=== PATIENT | male | born 1955 | race Caucasian/White ===

== ENCOUNTER 2017-02-15 14:47 | Emergency (ER) | payer OTHER ==
[~2017-02-15] VITALS: Ht 180.3 cm; Wt 109.1 kg
[2017-02-15 14:49] VITALS: BP 172/109; TEMP 97.9
[2017-02-15] MEDS ORDERED: ULTRAM 50MG TAB50 MG PO (16:29)
[2017-02-15 16:48] VITALS: PULSE 91
== END 2017-02-15 16:48 | disposition home or self-care (01) ==
LOC: COL.ER 14:47
DX: S83.92XA Sprain of unspecified site of left knee, initial encounter (principal); X50.1XXA Overexertion from prolonged static or awkward postures, initial encounter
CPT/HCPCS: L1830

== ENCOUNTER 2017-08-22 11:29 | Inpatient (IN) | payer OTHER ==
[~2017-08-22] VITALS: Ht 180.3 cm; Wt 112.1 kg
[~2017-08-22 11:29] MED LIST: ULTRAM 50MG TAB50 MG PO
[2017-08-22 11:59] LABS: HEMATOCRIT 38.9 % (42.0-52.0); HEMOGLOBIN 13.6 g/dl (13.5-18.0); MEAN CELL VOLUME 73 fl (80.0-100.0); MEAN CORPUSCULAR HEMOGLOBIN 26 pg (27.0-31.0); MEAN CORPUSCULAR HGB CONC 35 g/dl (33.0-37.0); MEAN PLATELET VOLUME 10.5 fl (7.4-10.4); PLATELET COUNT 183 K/mm3 (130-400); RED BLOOD COUNT 5.32 M/mm3 (4.20-5.60); REDCELL DISTRIBUTION WIDTH-CV 15.5 % (11.5-14.5)
[2017-08-22] MEDS ORDERED: FLEXERIL5 MG PO (12:09)
[2017-08-22] MEDS ORDERED: GLUCOPHAGE1000 MG PO (12:10)
[2017-08-22] MEDS ORDERED: TOPROL XL 50MG50 MG PO (12:10)
[2017-08-22] MEDS ORDERED: PRIL40 PO (12:11)
[2017-08-22] MEDS ORDERED: ADVIL200 MG PO (12:15)
[2017-08-22] MEDS ORDERED: NORVASC 5MG5 MG/TAB PO (12:15)
[2017-08-22] MEDS ORDERED: NORCO 325 MG-7.1 TAB PO (12:15)
[2017-08-22] MEDS ORDERED: PRINIVIL40 MG PO (12:15)
[2017-08-22] MEDS ORDERED: GLYXAMBI1 TA1 PO (12:16)
[2017-08-22 12:17] LABS: ALBUMIN 2.8 gm/dL (3.5-5.0); BILIRUBIN,TOTAL 8.2 mg/dL (0.0-1.0); CALCIUM 8.5 mg/dL (8.4-10.2); CREATININE, serum 1.65 mg/dL (0.66-1.25); POTASSIUM 3.4 mmol/L (3.4-5.0)
[2017-08-22 12:29] LABS: C-REACTIVE PROTEIN 20.7 mg/dL (0.0-0.9)
[2017-08-22 12:39] LABS: BAND 15 % (0-10); LYMPHOCYTE 4 % (20.0-51.0); NEUTROPHILS 77 % (42.0-75.2)
[2017-08-22 12:44] LABS: PLATELET ESTIMATE NORMAL (NORMAL)
[2017-08-22 12:45] LABS: MICROCYTOSIS 1+
[2017-08-22 13:21] LABS: TROPONIN-I < 0.012 ng/mL (0.000-0.034)
[2017-08-22 17:08] VITALS: BP 125/69; PULSE 129; TEMP 98.9
[2017-08-22 19:34] VITALS: BP 153/79; PULSE 135; TEMP 97.9
[2017-08-22 21:19] LABS: INR 1.3 (0.8-3.0); PROTHROMBIN TIME 15.1 SECONDS (9.7-12.8)
[2017-08-22 21:21] LABS: PARTIAL THROMBOPLASTIN TIME 34.1 SECONDS (26.0-37.0)
[2017-08-22 23:12] VITALS: BP 147/82; PULSE 125; TEMP 100.3
[2017-08-23] VITALS (13 sets, daily range): BP systolic 123–158; BP diastolic 74–96; PULSE 100–125; TEMP 96.6–99.4
[2017-08-23 07:25] LABS: HEMATOCRIT 37.4 % (42.0-52.0); HEMOGLOBIN 12.8 g/dl (13.5-18.0); MEAN CELL VOLUME 74 fl (80.0-100.0); MEAN CORPUSCULAR HEMOGLOBIN 25 pg (27.0-31.0); MEAN CORPUSCULAR HGB CONC 34 g/dl (33.0-37.0); MEAN PLATELET VOLUME 10.9 fl (7.4-10.4); PLATELET COUNT 185 K/mm3 (130-400); RED BLOOD COUNT 5.09 M/mm3 (4.20-5.60); REDCELL DISTRIBUTION WIDTH-CV 15.4 % (11.5-14.5)
[2017-08-23 07:28] LABS: INR 1.3 (0.8-3.0); PROTHROMBIN TIME 15.1 SECONDS (9.7-12.8)
[2017-08-23 07:31] LABS: PARTIAL THROMBOPLASTIN TIME 32.9 SECONDS (26.0-37.0)
[2017-08-23 07:47] LABS: ALBUMIN 2.6 gm/dL (3.5-5.0); CALCIUM 8.5 mg/dL (8.4-10.2); CREATININE, serum 1.22 mg/dL (0.66-1.25); TOTAL PROTEIN 7.8 gm/dL (6.4-8.2)
[2017-08-23 07:52] LABS: BAND 12 % (0-10); LYMPHOCYTE 6 % (20.0-51.0); METAMYELOCYTE 1 % (0-0); NEUTROPHILS 80 % (42.0-75.2)
[2017-08-23 07:53] LABS: MICROCYTOSIS 1+; PLATELET ESTIMATE NORMAL (NORMAL)
[2017-08-23 08:17] LABS: BILIRUBIN UNCONJUGATED 0.8 mg/dL (0.0-1.1); BILIRUBIN,DIRECT 8.6 mg/dL (0.0-0.4); BILIRUBIN,TOTAL 9.4 mg/dL (0.0-1.0)
[2017-08-23 09:16] LABS: SYNOVIAL FL. MONONUCLEAR 22.2 % (0-75); SYNOVIAL FLUID RBC 567000 /mm3 (0-0); SYNOVIAL FLUID WBC 306897 /mm3 (200-600)
[2017-08-23 09:20] LABS: SYNOVIAL FLUID APPEARANCE TURBID; SYNOVIAL FLUID COLOR BROWN
[2017-08-23 10:06] LABS: ARTERIAL BLD GAS TCO2 CT 12.7; ARTERIAL BLOOD GAS BASE EXCESS -10.6 (-2-2); ARTERIAL BLOOD GAS HCO3 12.1 meq/L (22-26); ARTERIAL BLOOD GAS PO2 88.4 mmHg (80-100); ARTERIAL BLOOD GAS pH 7.39 (7.35-7.45)
[2017-08-23 10:07] LABS: ARTERIAL BLOOD GAS PCO2 20.5 mmHg (35-45)
[2017-08-23] MEDS ORDERED: DEPO-TESTOS100 MG/ML IM (12:09)
[2017-08-24 04:01] VITALS: BP 139/81; PULSE 110; TEMP 98.7
[2017-08-24 06:57] LABS: HEMOGLOBIN 12.1 g/dl (13.5-18.0); MEAN CELL VOLUME 75 fl (80.0-100.0); MEAN CORPUSCULAR HEMOGLOBIN 25 pg (27.0-31.0); MEAN CORPUSCULAR HGB CONC 33 g/dl (33.0-37.0); MEAN PLATELET VOLUME 10.1 fl (7.4-10.4); PLATELET COUNT 192 K/mm3 (130-400); RED BLOOD COUNT 4.82 M/mm3 (4.20-5.60); REDCELL DISTRIBUTION WIDTH-CV 15.7 % (11.5-14.5)
[2017-08-24 06:59] LABS: HEMATOCRIT 36.3 % (42.0-52.0)
[2017-08-24 07:25] LABS: BAND 16 % (0-10); LYMPHOCYTE 2 % (20.0-51.0); NEUTROPHILS 79 % (42.0-75.2); PLATELET ESTIMATE NORMAL (NORMAL)
[2017-08-24 07:26] LABS: MICROCYTOSIS 1+
[2017-08-24 07:27] LABS: ERYTHROCYTE SEDIMENTATION RATE 120 mm/hr (0-30)
[2017-08-24 07:37] VITALS: BP 151/91; PULSE 112; TEMP 98.3
[2017-08-24 11:03] LABS: ALBUMIN 2.4 gm/dL (3.5-5.0); BILIRUBIN UNCONJUGATED 0.9 mg/dL (0.0-1.1); BILIRUBIN,DIRECT 6.8 mg/dL (0.0-0.4); BILIRUBIN,TOTAL 7.6 mg/dL (0.0-1.0); CREATININE, serum 1.08 mg/dL (0.66-1.25); POTASSIUM 3.5 mmol/L (3.4-5.0); TOTAL PROTEIN 7.8 gm/dL (6.4-8.2)
[2017-08-24 11:58] VITALS: BP 148/56; PULSE 112; TEMP 98.4
[2017-08-24 13:35] LABS: COLLECTION METHOD RANDOM VOIDED
[2017-08-24 13:59] LABS: MUCOUS Present /lpf; PH 6 (5-8); SQUAMOUS EPITHELIAL None Seen /hpf; URINE APPEARANCE Clear; URINE BACTERIA None Seen /hpf; URINE BILIRUBIN Negative (NEGATIVE); URINE BLOOD 1+ (NEGATIVE); URINE COLOR Amber; URINE GLUCOSE 3+ (NEGATIVE); URINE KETONE Trace (NEGATIVE); URINE LEUKOCYTE ESTERASE Negative (NEGATIVE); URINE NITRATE Negative (NEGATIVE); URINE PROTEIN(semi-quant) Negative (NEGATIVE); URINE UROBILINOGEN >=4.0 mg/dL (NEGATIVE)
[2017-08-24 16:11] VITALS: BP 168/97; PULSE 123; TEMP 98
[2017-08-24 21:06] VITALS: BP 149/85; PULSE 112; TEMP 98.4
[2017-08-25] VITALS (7 sets, daily range): BP systolic 156–165; BP diastolic 88–97; PULSE 113–125; TEMP 98–99.3
[2017-08-25 07:30] LABS: HEMOGLOBIN 11.8 g/dl (13.5-18.0); MEAN CELL VOLUME 75 fl (80.0-100.0); MEAN CORPUSCULAR HEMOGLOBIN 25 pg (27.0-31.0); MEAN CORPUSCULAR HGB CONC 34 g/dl (33.0-37.0); MEAN PLATELET VOLUME 10.6 fl (7.4-10.4); PLATELET COUNT 222 K/mm3 (130-400); RED BLOOD COUNT 4.69 M/mm3 (4.20-5.60); REDCELL DISTRIBUTION WIDTH-CV 15.8 % (11.5-14.5)
[2017-08-25 07:57] LABS: ALBUMIN 2.4 gm/dL (3.5-5.0); BILIRUBIN,TOTAL 3.6 mg/dL (0.0-1.0); CALCIUM 7.8 mg/dL (8.4-10.2); CREATININE, serum 0.95 mg/dL (0.66-1.25); TOTAL PROTEIN 7.9 gm/dL (6.4-8.2)
[2017-08-25 08:04] LABS: POTASSIUM 2.9 mmol/L (3.4-5.0)
[2017-08-25 08:06] LABS: ERYTHROCYTE SEDIMENTATION RATE 58 mm/hr (0-30)
[2017-08-25 08:11] LABS: BILIRUBIN UNCONJUGATED 0.8 mg/dL (0.0-1.1); BILIRUBIN,DIRECT 2.7 mg/dL (0.0-0.4)
[2017-08-25 09:10] LABS: ANISOCYTOSIS 1+; BAND 4 % (0-10); LYMPHOCYTE 4 % (20.0-51.0); MICROCYTOSIS 1+; NEUTROPHILS 89 % (42.0-75.2); PLATELET ESTIMATE NORMAL (NORMAL)
[2017-08-25 21:15] LABS: HEPATITIS B SURFACE ANTIGEN Negative (()); HEPATITIS C VIRUS ANTIBODY Negative (())
[2017-08-25 23:04] LABS: CARCINOEMBRYONIC ANTIGEN 3.6 ng/mL (0.0-5.0)
[2017-08-26 04:07] VITALS: BP 164/91; PULSE 119; TEMP 98.5
[2017-08-26 06:28] LABS: MEAN CELL VOLUME 74 fl (80.0-100.0); MEAN CORPUSCULAR HEMOGLOBIN 25 pg (27.0-31.0); MEAN CORPUSCULAR HGB CONC 34 g/dl (33.0-37.0); MEAN PLATELET VOLUME 10.6 fl (7.4-10.4); PLATELET COUNT 235 K/mm3 (130-400); REDCELL DISTRIBUTION WIDTH-CV 15.5 % (11.5-14.5)
[2017-08-26 06:33] LABS: HEMATOCRIT 32.4 % (42.0-52.0)
[2017-08-26 06:43] LABS: ALBUMIN 2.4 gm/dL (3.5-5.0); BILIRUBIN UNCONJUGATED 0.8 mg/dL (0.0-1.1); BILIRUBIN,TOTAL 2.8 mg/dL (0.0-1.0); CALCIUM 7.3 mg/dL (8.4-10.2); CREATININE, serum 0.78 mg/dL (0.66-1.25); POTASSIUM 3.1 mmol/L (3.4-5.0); TOTAL PROTEIN 7.6 gm/dL (6.4-8.2)
[2017-08-26 06:50] LABS: C-REACTIVE PROTEIN 4.9 mg/dL (0.0-0.9)
[2017-08-26 07:15] LABS: BAND 3 % (0-10); LYMPHOCYTE 5 % (20.0-51.0); NEUTROPHILS 89 % (42.0-75.2); PLATELET ESTIMATE NORMAL (NORMAL); TARGET CELLS 2+
[2017-08-26 07:16] LABS: ANISOCYTOSIS 1+; MICROCYTOSIS 1+
[2017-08-26 07:17] LABS: ERYTHROCYTE SEDIMENTATION RATE 100 mm/hr (0-30)
[2017-08-26 07:50] VITALS: BP 158/93; PULSE 116; TEMP 98.1
[2017-08-26 11:52] VITALS: BP 153/87; PULSE 115; TEMP 98.7
[2017-08-26 15:46] VITALS: BP 149/96; PULSE 110; TEMP 98.4
[2017-08-26 18:40] VITALS: BP 157/96; PULSE 123; TEMP 98.3
[2017-08-26 23:32] VITALS: BP 138/83; PULSE 104; TEMP 97.8
[2017-08-27 03:14] VITALS: BP 159/89; PULSE 109; TEMP 97.7
[2017-08-27 07:07] LABS: BASO % 0.2 % (0.0-2.0); EOS # 0.1 (0.0-0.7); EOS % 0.3 % (0-4.0); GRAN # 14.9 (1.4-6.5); GRAN % 85.9 % (42.2-75.2); HEMOGLOBIN 10.8 g/dl (13.5-18.0); LYMPH # 1.1 (1.2-3.4); MEAN CELL VOLUME 75 fl (80.0-100.0); MEAN CORPUSCULAR HEMOGLOBIN 25 pg (27.0-31.0); MEAN CORPUSCULAR HGB CONC 33 g/dl (33.0-37.0); MEAN PLATELET VOLUME 10.7 fl (7.4-10.4); MONO # 1.1 (0.1-0.6); MONO % 6.4 % (1.7-9.3); PLATELET COUNT 254 K/mm3 (130-400); RED BLOOD COUNT 4.37 M/mm3 (4.20-5.60); REDCELL DISTRIBUTION WIDTH-CV 15.9 % (11.5-14.5)
[2017-08-27 07:09] LABS: HEMATOCRIT 32.9 % (42.0-52.0)
[2017-08-27 07:23] LABS: ALBUMIN 2.4 gm/dL (3.5-5.0); BILIRUBIN,TOTAL 2.1 mg/dL (0.0-1.0); CALCIUM 7.3 mg/dL (8.4-10.2); CREATININE, serum 0.7 mg/dL (0.66-1.25); POTASSIUM 3.3 mmol/L (3.4-5.0); TOTAL PROTEIN 7.4 gm/dL (6.4-8.2)
[2017-08-27 07:30] LABS: ERYTHROCYTE SEDIMENTATION RATE 95 mm/hr (0-30)
[2017-08-27 07:31] LABS: ALBUMIN 2.4 gm/dL (3.5-5.0); BILIRUBIN UNCONJUGATED 0.6 mg/dL (0.0-1.1); BILIRUBIN,DIRECT 1.4 mg/dL (0.0-0.4); C-REACTIVE PROTEIN 6.3 mg/dL (0.0-0.9); CALCIUM 7.3 mg/dL (8.4-10.2); CREATININE, serum 0.74 mg/dL (0.66-1.25); POTASSIUM 3.3 mmol/L (3.4-5.0); TOTAL PROTEIN 7.5 gm/dL (6.4-8.2)
[2017-08-27 07:33] VITALS: BP 161/92; PULSE 114; TEMP 98.5
[2017-08-27 12:09] VITALS: BP 151/91; PULSE 114; TEMP 98.5
[2017-08-27 15:41] VITALS: BP 157/80; PULSE 125; TEMP 98.8
[2017-08-27 19:11] VITALS: BP 149/82; PULSE 118; TEMP 98.3
[2017-08-27 23:54] VITALS: BP 137/80; PULSE 100; TEMP 97.7
[2017-08-28] VITALS (7 sets, daily range): BP systolic 139–175; BP diastolic 78–95; PULSE 99–115; TEMP 97.9–98.4
[2017-08-28 07:38] LABS: BASO % 0.3 % (0.0-2.0); EOS # 0.2 (0.0-0.7); EOS % 1.1 % (0-4.0); GRAN # 11.8 (1.4-6.5); GRAN % 83.6 % (42.2-75.2); HEMOGLOBIN 10.4 g/dl (13.5-18.0); LYMPH # 0.8 (1.2-3.4); MEAN CELL VOLUME 76 fl (80.0-100.0); MEAN CORPUSCULAR HEMOGLOBIN 25 pg (27.0-31.0); MEAN CORPUSCULAR HGB CONC 33 g/dl (33.0-37.0); MEAN PLATELET VOLUME 10.9 fl (7.4-10.4); MONO # 1.2 (0.1-0.6); MONO % 8.3 % (1.7-9.3); PLATELET COUNT 275 K/mm3 (130-400); REDCELL DISTRIBUTION WIDTH-CV 16.3 % (11.5-14.5)
[2017-08-28 07:46] LABS: HEMATOCRIT 31.3 % (42.0-52.0)
[2017-08-28 07:57] LABS: CALCIUM 7.4 mg/dL (8.4-10.2); CREATININE, serum 0.7 mg/dL (0.66-1.25); POTASSIUM 3.4 mmol/L (3.4-5.0)
[2017-08-28 07:59] LABS: C-REACTIVE PROTEIN 7.3 mg/dL (0.0-0.9)
[2017-08-28 08:08] LABS: ERYTHROCYTE SEDIMENTATION RATE 72 mm/hr (0-30)
[2017-08-28] MEDS ORDERED: ROCEPHIN 2GM VIAL21 IV (08:30)
[2017-08-28] MEDS ORDERED: ZESTRIL 20MG TA20 MG PO (09:38)
[2017-08-28] MEDS ORDERED: LOPRESSOR 550 MG/TAB PO (09:38)
[2017-08-28] MEDS ORDERED: SENOKOT S 50 MG1 TAB PO (09:39)
[2017-08-28] MEDS ORDERED: DULCOLAX S10 MG/SUPP RC (09:39)
[2017-08-28] MEDS ORDERED: MAG-OX 400400 MG/TAB PO (09:39)
[2017-08-28] MEDS ORDERED: TYLENOL 8 HR PO (09:39)
[2017-08-28] MEDS ORDERED: ROXICODONE 55 MG/TAB PO ×2 (09:41→10:35)
[2017-08-28 19:04] LABS: HEMATOCRIT 28.9 % (42.0-52.0); HEMOGLOBIN 9.4 g/dl (13.5-18.0)
[2017-08-29 00:41] LABS: HEMATOCRIT 27.7 % (42.0-52.0); HEMOGLOBIN 9.1 g/dl (13.5-18.0)
[2017-08-29 03:40] VITALS: BP 152/84; PULSE 109; TEMP 98.6
[2017-08-29 06:56] LABS: BASO % 0.3 % (0.0-2.0); EOS # 0.1 (0.0-0.7); EOS % 0.6 % (0-4.0); GRAN # 12.1 (1.4-6.5); GRAN % 85.1 % (42.2-75.2); LYMPH # 0.8 (1.2-3.4); LYMPH % 5.3 % (20.0-51.0); MEAN CELL VOLUME 78 fl (80.0-100.0); MEAN CORPUSCULAR HGB CONC 32 g/dl (33.0-37.0); MEAN PLATELET VOLUME 10.9 fl (7.4-10.4); MONO # 1.1 (0.1-0.6); MONO % 7.9 % (1.7-9.3); PLATELET COUNT 348 K/mm3 (130-400); RED BLOOD COUNT 3.64 M/mm3 (4.20-5.60); REDCELL DISTRIBUTION WIDTH-CV 16.6 % (11.5-14.5)
[2017-08-29 06:59] LABS: HEMATOCRIT 28.4 % (42.0-52.0); HEMOGLOBIN 9.2 g/dl (13.5-18.0); MEAN CORPUSCULAR HEMOGLOBIN 25 pg (27.0-31.0)
[2017-08-29 07:07] LABS: CALCIUM 7.5 mg/dL (8.4-10.2); CREATININE, serum 0.65 mg/dL (0.66-1.25); POTASSIUM 3.6 mmol/L (3.4-5.0)
[2017-08-29] MEDS ORDERED: PROTONIX 40MG T40 MG PO (08:04)
[2017-08-29] MEDS ORDERED: CARAFATE 1GM1 G PO (08:04)
[2017-08-29] MEDS ORDERED: NOVOLOG FLEX100 U/ML SQ (08:12)
[2017-08-29 08:14] VITALS: BP 125/64; PULSE 119; TEMP 98
[2017-08-29] MEDS ORDERED: FERROUS SU325 MG/TAB PO (08:45)
[2017-08-29 11:54] VITALS: BP 145/92; PULSE 120; TEMP 101.2
[2017-08-29 15:57] VITALS: BP 140/75; PULSE 114; TEMP 98.9
[2017-08-29 19:16] VITALS: BP 135/70; PULSE 132; TEMP 98.7
[2017-08-29 23:34] VITALS: BP 145/80; PULSE 116; TEMP 99.2
[2017-08-30 03:59] VITALS: BP 152/86; PULSE 114; TEMP 97.7
[2017-08-30 05:43] LABS: MEAN CELL VOLUME 77 fl (80.0-100.0); MEAN CORPUSCULAR HGB CONC 33 g/dl (33.0-37.0); MEAN PLATELET VOLUME 10.4 fl (7.4-10.4); PLATELET COUNT 359 K/mm3 (130-400); RED BLOOD COUNT 3.51 M/mm3 (4.20-5.60)
[2017-08-30 05:54] LABS: CALCIUM 7.4 mg/dL (8.4-10.2); CREATININE, serum 0.74 mg/dL (0.66-1.25); HEMOGLOBIN 8.8 g/dl (13.5-18.0); MEAN CORPUSCULAR HEMOGLOBIN 25 pg (27.0-31.0); POTASSIUM 3.7 mmol/L (3.4-5.0)
[2017-08-30 07:50] VITALS: BP 157/90; PULSE 116; TEMP 98.8
[2017-08-30 12:06] VITALS: BP 140/78; PULSE 110; TEMP 98.5
[2017-08-30 12:46] LABS: ANISOCYTOSIS 2+; BAND 5 % (0-10); EOSINOPHIL 1 % (0-4); LYMPHOCYTE 4 % (20.0-51.0); MICROCYTOSIS 1+; NEUTROPHILS 88 % (42.0-75.2); PLATELET ESTIMATE INCREASED (NORMAL)
[2017-08-30 15:44] VITALS: BP 153/79; PULSE 110; TEMP 98.2
[2017-08-30 19:06] VITALS: BP 139/82; PULSE 138; TEMP 99.1
[2017-08-30 23:40] VITALS: BP 135/79; PULSE 112; TEMP 98.7
[2017-08-31 04:12] VITALS: BP 132/80; PULSE 104; TEMP 98.2
[2017-08-31 06:00] LABS: BASO # 0.1 (0.0-0.2); BASO % 0.5 % (0.0-2.0); EOS # 0.2 (0.0-0.7); EOS % 1.6 % (0-4.0); GRAN # 11.2 (1.4-6.5); GRAN % 78.4 % (42.2-75.2); LYMPH # 1.2 (1.2-3.4); LYMPH % 8.4 % (20.0-51.0); MEAN CELL VOLUME 79 fl (80.0-100.0); MEAN CORPUSCULAR HGB CONC 32 g/dl (33.0-37.0); MEAN PLATELET VOLUME 10.5 fl (7.4-10.4); MONO # 1.5 (0.1-0.6); MONO % 10.5 % (1.7-9.3); PLATELET COUNT 396 K/mm3 (130-400); RED BLOOD COUNT 3.23 M/mm3 (4.20-5.60); REDCELL DISTRIBUTION WIDTH-CV 17.6 % (11.5-14.5)
[2017-08-31 06:12] LABS: CALCIUM 7.6 mg/dL (8.4-10.2); CREATININE, serum 0.83 mg/dL (0.66-1.25); MAGNESIUM 1.4 mg/dL (1.6-2.3); POTASSIUM 3.8 mmol/L (3.4-5.0)
[2017-08-31 06:14] LABS: HEMATOCRIT 25.5 % (42.0-52.0); HEMOGLOBIN 8.2 g/dl (13.5-18.0); MEAN CORPUSCULAR HEMOGLOBIN 25 pg (27.0-31.0)
[2017-08-31 07:48] VITALS: BP 163/86; PULSE 120; TEMP 98.6
[2017-08-31 11:41] VITALS: BP 129/73; PULSE 105; TEMP 98.5
[2017-08-31 15:57] VITALS: BP 141/91; PULSE 123; TEMP 98.5
[2017-08-31 20:34] VITALS: BP 134/76; PULSE 116; TEMP 98.6
[2017-09-01 04:22] VITALS: BP 137/71; PULSE 100; TEMP 97.6
[2017-09-01 07:05] LABS: BASO # 0.1 (0.0-0.2); BASO % 0.4 % (0.0-2.0); EOS # 0.1 (0.0-0.7); EOS % 0.4 % (0-4.0); GRAN # 11.2 (1.4-6.5); GRAN % 83.1 % (42.2-75.2); LYMPH # 0.9 (1.2-3.4); LYMPH % 6.5 % (20.0-51.0); MEAN CELL VOLUME 80 fl (80.0-100.0); MEAN CORPUSCULAR HGB CONC 32 g/dl (33.0-37.0); MEAN PLATELET VOLUME 11.4 fl (7.4-10.4); MONO # 1.2 (0.1-0.6); MONO % 9.1 % (1.7-9.3); PLATELET COUNT 403 K/mm3 (130-400); RED BLOOD COUNT 3.33 M/mm3 (4.20-5.60); REDCELL DISTRIBUTION WIDTH-CV 17.7 % (11.5-14.5)
[2017-09-01 07:08] LABS: HEMATOCRIT 26.5 % (42.0-52.0); HEMOGLOBIN 8.5 g/dl (13.5-18.0); MEAN CORPUSCULAR HEMOGLOBIN 26 pg (27.0-31.0)
[2017-09-01 07:18] LABS: CALCIUM 7.8 mg/dL (8.4-10.2); CREATININE, serum 0.82 mg/dL (0.66-1.25); POTASSIUM 3.7 mmol/L (3.4-5.0)
[2017-09-01 07:37] VITALS: BP 135/76; PULSE 96; TEMP 97.8
[2017-09-01] MEDS ORDERED: FLEXERIL 1010 MG/TAB PO (08:19)
[2017-09-01] MEDS ORDERED: ROCEPHIN 2GM VIAL21 IV (08:19)
[2017-09-01] MEDS ORDERED: K-TAB20 PO (08:23)
[2017-09-01] MEDS ORDERED: NS INT FLUSH 1010 ML IV (08:25)
[2017-09-01 11:27] VITALS: BP 132/75; PULSE 116; TEMP 97.9
[2017-09-01 13:32] VITALS: BP 132/75; PULSE 116; TEMP 97.9
== END 2017-09-01 14:40 | DRG 485 ==
LOC: COL.ER 11:29 → MEDICAL 14:45
PROVIDERS: Family Medicine; Hospitalist; Internal Medicine; Internal Medicine Infectious Disease; Internal Medicine Nephrology; Nurse Practitioner; Nurse Practitioner Family; Orthopaedic Surgery Sports Medicine; Physician Assistant
PROC: 0S9D00Z Drainage of Left Knee Joint with Drainage Device, Open Approach (ICD-10-PCS; 2017-08-23)
PROC: 0SBD0ZZ Excision of Left Knee Joint, Open Approach (ICD-10-PCS; principal; 2017-08-23 17:00)
PROC: 0DJ08ZZ Inspection of Upper Intestinal Tract, Via Natural or Artificial Opening Endoscopic (ICD-10-PCS; 2017-08-29)
DX: T84.54XA Infection and inflammatory reaction due to internal left knee prosthesis, initial encounter (principal); A41.9 Sepsis, unspecified organism; K25.4 Chronic or unspecified gastric ulcer with hemorrhage; S22.41XA Multiple fractures of ribs, right side, initial encounter for closed fracture; N17.9 Acute kidney failure, unspecified; E87.2 Acidosis; L03.115 Cellulitis of right lower limb; R17 Unspecified jaundice; B95.4 Other streptococcus as the cause of diseases classified elsewhere; I10 Essential (primary) hypertension; E11.9 Type 2 diabetes mellitus without complications; F17.210 Nicotine dependence, cigarettes, uncomplicated; E87.6 Hypokalemia; W18.30XA Fall on same level, unspecified, initial encounter; E83.42 Hypomagnesemia; M25.462 Effusion, left knee
CPT/HCPCS: 99222-AI; 99232-AI; 99233-AI; 99239; A9284; C1751; J0696; J1100; J1170; J1650; J1815; J2250; J2270; J2405; J2543; J2704; J3010; J3370; J3475; J7030; J7040; J7050; L1830; Q9967

== ENCOUNTER 2018-07-24 14:30 | Emergency (ER) | payer OTHER ==
[~2018-07-24] VITALS: Ht 180.3 cm; Wt 118.2 kg
[~2018-07-24 14:30] MED LIST changes: -HYGROTON 2525 MG/TAB PO
[2018-07-24 14:47] VITALS: TEMP 98
[2018-07-24 16:27] LABS: ALBUMIN 4.5 gm/dL (3.5-5.0); BILIRUBIN,TOTAL 0.3 mg/dL (0.0-1.0); CALCIUM 9.3 mg/dL (8.4-10.2); CREATININE, serum 1.1 (0.66-1.25); POTASSIUM 5.4 mmol/L (3.4-5.0); TOTAL PROTEIN 8.4 gm/dL (6.4-8.2)
[2018-07-24] MEDS ORDERED: HYGROTON 2525 MG/TAB PO (17:17)
[2018-07-24 17:41] VITALS: BP 129/80; PULSE 84
== END 2018-07-24 17:40 | disposition home or self-care (01) ==
LOC: COL.ER 14:30
PROVIDERS: Emergency Medicine
DX: E87.5 Hyperkalemia (principal); E11.9 Type 2 diabetes mellitus without complications; I10 Essential (primary) hypertension; Z87.891 Personal history of nicotine dependence; Z79.84 Long term (current) use of oral hypoglycemic drugs
CPT/HCPCS: J0610

== ENCOUNTER → 2018-07-24 | Outpatient (CLI) | payer OTHER ==
[~2018-07-24] MED LIST changes: +ADVIL200 MG PO; +CARAFATE 1GM1 G PO; +DEPO-TESTOS100 MG/ML IM; +DULCOLAX S10 MG/SUPP RC; +FERROUS SU325 MG/TAB PO; +FLEXERIL 1010 MG/TAB PO; +FLEXERIL5 MG PO; +GLUCOPHAGE1000 MG PO; +GLYXAMBI1 TA1 PO; +HYGROTON 2525 MG/TAB PO; +K-TAB20 PO; +LOPRESSOR 550 MG/TAB PO; +MAG-OX 400400 MG/TAB PO; +NORCO 325 MG-7.1 TAB PO; +NORVASC 5MG5 MG/TAB PO; +NOVOLOG FLEX100 U/ML SQ; +NS INT FLUSH 1010 ML IV; +PRIL40 PO; +PRINIVIL40 MG PO; +PROTONIX 40MG T40 MG PO; +ROCEPHIN 2GM VIAL21 IV; +ROXICODONE 55 MG/TAB PO; +SENOKOT S 50 MG1 TAB PO; +TOPROL XL 50MG50 MG PO; +TYLENOL 8 HR PO; +ZESTRIL 20MG TA20 MG PO
[2018-07-24 09:32] LABS: BASO # 0.1 (0.0-0.2); BASO % 0.5 % (0.0-2.0); EOS # 0.2 (0.0-0.7); EOS % 2.2 % (0-4.0); GRAN # 8.4 (1.4-6.5); GRAN % 77.4 % (42.2-75.2); HEMATOCRIT 49.3 % (42.0-52.0); HEMOGLOBIN 15.2 g/dl (13.5-18.0); LYMPH # 1.1 (1.2-3.4); LYMPH % 9.9 % (20.0-51.0); MEAN CELL VOLUME 84 fl (80.0-100.0); MEAN CORPUSCULAR HEMOGLOBIN 26 pg (27.0-31.0); MEAN CORPUSCULAR HGB CONC 31 g/dl (33.0-37.0); MEAN PLATELET VOLUME 9.9 fl (7.4-10.4); MONO # 1.1 (0.1-0.6); MONO % 9.7 % (1.7-9.3); PLATELET COUNT 252 K/mm3 (130-400); REDCELL DISTRIBUTION WIDTH-CV 14.8 % (11.5-14.5)
[2018-07-24 09:46] LABS: ALBUMIN 4.5 gm/dL (3.5-5.0); BILIRUBIN,TOTAL 0.5 mg/dL (0.0-1.0); C-REACTIVE PROTEIN 0.9 mg/dL (0.0-0.9); CALCIUM 9.7 mg/dL (8.4-10.2); CREATININE, serum 1.2 (0.66-1.25); TOTAL PROTEIN 8.6 gm/dL (6.4-8.2)
[2018-07-24 09:53] LABS: ERYTHROCYTE SEDIMENTATION RATE 1 mm/hr (0-30)
[2018-07-24 10:09] LABS: POTASSIUM 6.3 mmol/L (3.4-5.0)
== END ==
LOC: COL.LAB 09:13
PROVIDERS: Nurse Practitioner
DX: A49.1 Streptococcal infection, unspecified site (principal); A49.01 Methicillin susceptible Staphylococcus aureus infection, unspecified site; M00.9 Pyogenic arthritis, unspecified

== ENCOUNTER 2019-05-07 12:29 | Inpatient (IN) | payer MEDICARE ==
[~2019-05-07] VITALS: Ht 177.8 cm; Wt 120.0 kg
[~2019-05-07 12:29] MED LIST changes: +HYGROTON 2525 MG/TAB PO
[2019-05-07 13:20] LABS: BASO # 0.1 (0.0-0.2); BASO % 0.4 % (0.0-2.0); EOS # 0.2 (0.0-0.7); EOS % 1.4 % (0-4.0); GRAN # 9.9 (1.4-6.5); GRAN % 81.2 % (42.2-75.2); HEMATOCRIT 49.9 % (42.0-52.0); LYMPH # 1.2 (1.2-3.4); LYMPH % 9.8 % (20.0-51.0); MEAN CELL VOLUME 85 fl (80.0-100.0); MEAN CORPUSCULAR HEMOGLOBIN 27 pg (27.0-31.0); MEAN CORPUSCULAR HGB CONC 32 g/dl (33.0-37.0); MEAN PLATELET VOLUME 9.7 fl (7.4-10.4); MONO # 0.8 (0.1-0.6); MONO % 6.8 % (1.7-9.3); PLATELET COUNT 227 K/mm3 (130-400); RED BLOOD COUNT 5.89 M/mm3 (4.20-5.60); REDCELL DISTRIBUTION WIDTH-CV 16.2 % (11.5-14.5)
[2019-05-07 13:39] LABS: ALBUMIN 4.2 gm/dL (3.5-5.0); BILIRUBIN,TOTAL 0.7 mg/dL (0.0-1.0); C-REACTIVE PROTEIN 0.6 mg/dL (0.0-0.9); CREATININE, serum 0.96 (0.66-1.25); POTASSIUM 4.7 mmol/L (3.4-5.0); TOTAL PROTEIN 7.9 gm/dL (6.4-8.2)
[2019-05-07] MEDS ORDERED: CEPHALEXIN500 M1 (15:12)
[2019-05-07] MEDS ORDERED: NEURONTIN300 MG/CAP PO (15:13)
[2019-05-07] MEDS ORDERED: NEURONTIN100 MG/CAP PO (15:13)
[2019-05-07] MEDS ORDERED: BUSPAR10 MG PO (15:14)
[2019-05-07] MEDS ORDERED: PRIL40 PO (15:14)
[2019-05-07 17:03] LABS: COLLECTION METHOD CLEAN CATCH
[2019-05-07 17:17] LABS: MUCOUS Present /lpf; PH 5 (5-8); SQUAMOUS EPITHELIAL 0-2 /hpf; URINE APPEARANCE Clear; URINE BACTERIA None Seen /hpf; URINE BILIRUBIN Negative (NEGATIVE); URINE BLOOD Negative (NEGATIVE); URINE COLOR Yellow; URINE GLUCOSE Negative (NEGATIVE); URINE KETONE Negative (NEGATIVE); URINE LEUKOCYTE ESTERASE Negative (NEGATIVE); URINE NITRATE Negative (NEGATIVE); URINE PROTEIN(semi-quant) 1+ (NEGATIVE); URINE UROBILINOGEN Negative (NEGATIVE)
[2019-05-07 17:46] LABS: INR 1.1 (0.8-3.0); PROTHROMBIN TIME 12.5 SECONDS (9.7-12.8)
[2019-05-07 17:50] LABS: SALICYLATE < 1.0 mg/dL
[2019-05-07 17:58] LABS: TROPONIN-I 0.016 ng/mL (0.000-0.035)
[2019-05-07 18:03] VITALS: BP 144/97; PULSE 116; TEMP 98.6
--- NOTE | 2019-05-07 18:52 | NUR ---
Pt up to room 307, A&O, independent in room. Initial completed by NICOLASA Cedeño. Report then given to fast food shift supervisor nurse. Unable to complete admission.
[2019-05-07 19:19] VITALS: BP 148/88; PULSE 123; TEMP 98.4
[2019-05-07] MEDS ORDERED: ROXICODONE 55 MG/TAB PO (19:38)
--- NOTE | 2019-05-07 20:00 | NUR ---
Assessment complete. Lungs clear. Heart sounds normal. Bowels active x4. Pulses strong throughout. No edema noted. Rash present to left hand-patient reports previous treatment received. Reports ABD pain at this time. Request PRN oxycodone to be ordered. Denies other needs. Call light in reach.
--- NOTE | 2019-05-07 20:15 | NUR ---
Patient requested home oxycodone 5mg Q4H. Spoke with Dr. Thomas. Stanford to add oxycodone 5 mg Q8H.
[2019-05-08] VITALS (11 sets, daily range): BP systolic 104–172; BP diastolic 77–116; PULSE 111–130; TEMP 97.6–98.9
--- NOTE | 2019-05-08 00:27 | NUR ---
Telemetry called stating patient pulse 144. Patient BP 170/110. Reports difficulty breathing and has wheezing with auscultation. No edema noted at this time. Spoke with Dr. Thomas. Stop IVF and give metprolol 50mg now and resume home dosing.
--- NOTE | 2019-05-08 02:00 | NUR ---
Resting in bed. Denies needs. Denies concerns at this time. Call light in reach.
--- NOTE | 2019-05-08 04:23 | NUR ---
Reports 7/10 ABD and knee pain. Provided with PRN oxycodone. Denies other needs at this time.
[2019-05-08 06:11] LABS: BASO # 0.1 (0.0-0.2); BASO % 0.6 % (0.0-2.0); EOS # 0.2 (0.0-0.7); EOS % 1.7 % (0-4.0); GRAN # 10.2 (1.4-6.5); GRAN % 84.2 % (42.2-75.2); HEMATOCRIT 47.2 % (42.0-52.0); HEMOGLOBIN 15.3 g/dl (13.5-18.0); LYMPH # 0.7 (1.2-3.4); LYMPH % 5.8 % (20.0-51.0); MEAN CELL VOLUME 85 fl (80.0-100.0); MEAN CORPUSCULAR HEMOGLOBIN 27 pg (27.0-31.0); MEAN CORPUSCULAR HGB CONC 32 g/dl (33.0-37.0); MEAN PLATELET VOLUME 10.2 fl (7.4-10.4); MONO # 0.9 (0.1-0.6); MONO % 7.2 % (1.7-9.3); PLATELET COUNT 222 K/mm3 (130-400); RED BLOOD COUNT 5.58 M/mm3 (4.20-5.60); REDCELL DISTRIBUTION WIDTH-CV 16.1 % (11.5-14.5)
[2019-05-08 06:24] LABS: ALBUMIN 3.9 gm/dL (3.5-5.0); BILIRUBIN,TOTAL 0.9 mg/dL (0.0-1.0); CALCIUM 8.3 mg/dL (8.4-10.2); CREATININE, serum 0.87 (0.66-1.25); TOTAL PROTEIN 7.2 gm/dL (6.4-8.2)
--- NOTE | 2019-05-08 06:30 | NUR ---
Patient fluids discontinued over night due to elevated BP, wheezing, and difficulty breathing. Otherwise uneventful night. Resting in bed this AM. Call light in reach.
--- NOTE | 2019-05-08 07:02 | NUR ---
Report given to LOIS Gonzales
--- NOTE | 2019-05-08 14:29 | NUR ---
Plan: To return home with brother Alfonso [phone] as care support. Patient also listed his brother as his EMR, and he does not currently have a DPOA on file he indicated that contact would be his brother. Patient currently lives in [facility]. Assess: SW met with patient, who showed SW surgery on his knees. Patient noted that he occassionally utilizes a cane to get around. Patient reported that hisPCP is Dr. Lake in [facility], and he has an upcoming appointment June 06. Patient reports that he gets his medications from [facility] with no complications. Patient declined services at time. 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 SW provided SM with contact information for VR, and described services offered. Patient also provided patient with a DPOA, and provided information about how to fill it out. Patient was also educated about community resources, and provided with a community resources packet. MANJIT will continue to follow.
--- NOTE | 2019-05-08 18:52 | NUR ---
Patient complains of SOB and cramps in his belly, Pain of 5/10, Pain was relieved with pain medication. Patient is alert and oriented.
--- NOTE | 2019-05-08 19:24 | NUR ---
Sitting at bedside. Assessment complete. Lungs clear. Reports mild shortness of breath. Heart sounds tachy. Bowels active x4. Pulses strong throughout. No edema noted. INT left AC without complications. BP elevated Provided with schedule metoprolol. Will recheck at 2100 and provide PRN hydralazine if needed. Reports 4/10 ABD pain. Provided with PRN oxycodone at this time. Denies other needs. Call light in reach.
--- NOTE | 2019-05-08 21:00 | NUR ---
Patient requested this nurse to update daughter Joan. Spoke with Joan. Questions answered. No concerns at this time.
--- NOTE | 2019-05-09 00:12 | NUR ---
Reports 5/10 ABD and left leg pain. Provided with PRN flexeril at this time. Call dm bartlett.
[2019-05-09 03:49] VITALS: BP 159/103; PULSE 127; TEMP 97.8
--- NOTE | 2019-05-09 05:49 | NUR ---
Patient tachy throughout night 110-120s and hypertensive. Did not require any PRN hydralazine. Resting in bed this AM. Reports shortness of breath improving. Denies needs this Am. Call light in reach.
[2019-05-09 06:21] LABS: BASO # 0.1 (0.0-0.2); BASO % 0.5 % (0.0-2.0); EOS # 0.2 (0.0-0.7); GRAN # 10.1 (1.4-6.5); GRAN % 82.9 % (42.2-75.2); HEMOGLOBIN 16.4 g/dl (13.5-18.0); LYMPH # 0.8 (1.2-3.4); LYMPH % 6.2 % (20.0-51.0); MEAN CELL VOLUME 83 fl (80.0-100.0); MEAN CORPUSCULAR HEMOGLOBIN 27 pg (27.0-31.0); MEAN CORPUSCULAR HGB CONC 33 g/dl (33.0-37.0); MEAN PLATELET VOLUME 10.1 fl (7.4-10.4); MONO % 8.1 % (1.7-9.3); PLATELET COUNT 240 K/mm3 (130-400); RED BLOOD COUNT 6.05 M/mm3 (4.20-5.60); REDCELL DISTRIBUTION WIDTH-CV 15.9 % (11.5-14.5)
[2019-05-09 06:32] LABS: BILIRUBIN,TOTAL 1.2 mg/dL (0.0-1.0); CALCIUM 8.6 mg/dL (8.4-10.2); CREATININE, serum 0.75 (0.66-1.25); POTASSIUM 3.5 mmol/L (3.4-5.0); TOTAL PROTEIN 7.5 gm/dL (6.4-8.2)
--- NOTE | 2019-05-09 06:51 | NUR ---
Report given to LOIS Gonzales
[2019-05-09 07:52] VITALS: BP 152/100; PULSE 123; TEMP 97.7
--- NOTE | 2019-05-09 08:50 | NUR ---
Pt assessment complete. Pt is sitting up in the recliner upon entry, he is A/O x4. His breathing is even and unlabored on RA. Pt reports pain 4/10 to abdomen. Reports stools have slowed down. Reports intermittent SOB. Denies chest pain or palpitations. POC discussed with patient who verbalizes understanding. No needs at this time. Call light within reach.
[2019-05-09] MEDS ORDERED: FLAGYL500 MG PO (10:04)
[2019-05-09] MEDS ORDERED: LOPRESSOR 550 MG/TAB PO (10:04)
[2019-05-09 11:16] VITALS: BP 131/95; PULSE 106; TEMP 97.7
--- NOTE | 2019-05-09 12:00 | NUR ---
Discharge instructions and paperwork reviewed with patient. All questions answered at this time. IV to LAC dc'd catheter tip intact. Pt walked out of facility at this time.
== END 2019-05-09 12:01 | disposition home or self-care (01) | DRG 872 ==
LOC: COL.ER 12:29 → MEDICAL 15:27 → COL.ER 15:27 → EDBEDREQ 15:43 → MEDICAL 05-09 03:00
PROVIDERS: Family Medicine; Nurse Practitioner Family; ADMIT Student in an Organized Health Care Education/Training Program
DX: A41.9 Sepsis, unspecified organism (principal); E87.2 Acidosis; I50.22 Chronic systolic (congestive) heart failure; K52.9 Noninfective gastroenteritis and colitis, unspecified; R65.20 Severe sepsis without septic shock; E11.9 Type 2 diabetes mellitus without complications; I50.9 Heart failure, unspecified; K57.90 Diverticulosis of intestine, part unspecified, without perforation or abscess without bleeding; I11.0 Hypertensive heart disease with heart failure; R00.0 Tachycardia, unspecified; K21.9 Gastro-esophageal reflux disease without esophagitis; N28.1 Cyst of kidney, acquired; Z79.84 Long term (current) use of oral hypoglycemic drugs; Z79.1 Long term (current) use of non-steroidal anti-inflammatories (NSAID); Z87.891 Personal history of nicotine dependence; Z96.652 Presence of left artificial knee joint; Z88.2 Allergy status to sulfonamides
CPT/HCPCS: 99222-AI; 99231-AI; 99239; J0696; J1650; J1815; J2270; J2405; J2543; J7030; Q9967

== ENCOUNTER 2019-06-28 17:16 | Inpatient (IN) | payer MEDICARE ==
[~2019-06-28] VITALS: Ht 180.3 cm; Wt 119.9 kg
[~2019-06-28 17:16] MED LIST changes: +BUSPAR10 MG PO; +CEPHALEXIN500 M1; +FLAGYL500 MG PO; +NEURONTIN100 MG/CAP PO; +NEURONTIN300 MG/CAP PO
[2019-06-28 17:44] LABS: BASO # 0.1 (0.0-0.2); BASO % 0.6 % (0.0-2.0); EOS # 0.1 (0.0-0.7); EOS % 1.1 % (0-4.0); GRAN # 9.1 (1.4-6.5); GRAN % 77.7 % (42.2-75.2); HEMATOCRIT 49.1 % (42.0-52.0); HEMOGLOBIN 15.2 g/dl (13.5-18.0); LYMPH # 1.4 (1.2-3.4); LYMPH % 12.1 % (20.0-51.0); MEAN CELL VOLUME 81 fl (80.0-100.0); MEAN CORPUSCULAR HEMOGLOBIN 25 pg (27.0-31.0); MEAN CORPUSCULAR HGB CONC 31 g/dl (33.0-37.0); MEAN PLATELET VOLUME 10.4 fl (7.4-10.4); MONO # 0.9 (0.1-0.6); MONO % 8.1 % (1.7-9.3); PLATELET COUNT 203 K/mm3 (130-400); RED BLOOD COUNT 6.03 M/mm3 (4.20-5.60); REDCELL DISTRIBUTION WIDTH-CV 15.3 % (11.5-14.5)
[2019-06-28 17:54] LABS: ALBUMIN 4.5 gm/dL (3.5-5.0); BILIRUBIN,TOTAL 1.1 mg/dL (0.0-1.0); C-REACTIVE PROTEIN 2.6 mg/dL (0.0-0.9); CALCIUM 9.5 mg/dL (8.4-10.2); CREATININE, serum 1.53 (0.66-1.25); POTASSIUM 4.2 mmol/L (3.4-5.0); TOTAL PROTEIN 8.4 gm/dL (6.4-8.2)
[2019-06-28 18:00] LABS: INR 1.4 (0.8-3.0)
[2019-06-28 18:03] LABS: TROPONIN-I 0.019 ng/mL (0.000-0.035)
[2019-06-28] MEDS ORDERED: ASPIRIN 81M81 MG/TA2 PO (18:10)
[2019-06-28] MEDS ORDERED: ATARAX 25MG25 MG/TAB PO (19:03)
[2019-06-28] MEDS ORDERED: CEPHALEXIN500 M1 PO (19:04)
[2019-06-28 20:20] LABS: COLLECTION METHOD CLEAN CATCH
[2019-06-28 20:28] LABS: MUCOUS Present /lpf; PH 6 (5-8); SQUAMOUS EPITHELIAL None Seen /hpf; URINE APPEARANCE Clear; URINE BACTERIA None Seen /hpf; URINE BILIRUBIN Negative (NEGATIVE); URINE BLOOD Negative (NEGATIVE); URINE COLOR Yellow; URINE GLUCOSE Negative (NEGATIVE); URINE KETONE Negative (NEGATIVE); URINE LEUKOCYTE ESTERASE Negative (NEGATIVE); URINE NITRATE Negative (NEGATIVE); URINE PROTEIN(semi-quant) 2+ (NEGATIVE)
[2019-06-28 21:10] LABS: MAGNESIUM 1.1 mg/dL (1.6-2.3); PHOSPHOROUS 4.2 mg/dL (2.5-4.5)
[2019-06-28 21:42] LABS: THYROID STIMULATING HORMONE 1.65 uIU/mL (0.465-4.680)
[2019-06-28] MEDS ORDERED: TOPROL XL100 MG PO (22:01)
[2019-06-28] MEDS ORDERED: HYGROTON 2525 MG/TAB PO (22:05)
[2019-06-28] MEDS ORDERED: PRIL40 PO (22:07)
[2019-06-28] MEDS ORDERED: FLEXERIL 1010 MG/TAB PO (22:09)
[2019-06-28] MEDS ORDERED: ZOFRAN 4MG T4 MG/TAB PO (22:13)
[2019-06-28] MEDS ORDERED: SENOKOT8.6 MG PO (22:16)
[2019-06-29 00:51] VITALS: BP 110/63; PULSE 101; TEMP 97.8
--- NOTE | 2019-06-29 01:47 | NUR ---
PATIENT IS 77% ON 15L HIFLOW NASAL CANNULA.
[2019-06-29 03:35] LABS: BASO # 0.1 (0.0-0.2); BASO % 0.6 % (0.0-2.0); EOS # 0.2 (0.0-0.7); EOS % 1.6 % (0-4.0); GRAN # 7.8 (1.4-6.5); GRAN % 70.6 % (42.2-75.2); HEMATOCRIT 44.6 % (42.0-52.0); LYMPH # 1.8 (1.2-3.4); LYMPH % 16.8 % (20.0-51.0); MEAN CELL VOLUME 81 fl (80.0-100.0); MEAN CORPUSCULAR HEMOGLOBIN 25 pg (27.0-31.0); MEAN CORPUSCULAR HGB CONC 31 g/dl (33.0-37.0); MONO # 1.1 (0.1-0.6); MONO % 9.9 % (1.7-9.3); PLATELET COUNT 179 K/mm3 (130-400); RED BLOOD COUNT 5.51 M/mm3 (4.20-5.60)
[2019-06-29 03:45] LABS: CALCIUM 9.1 mg/dL (8.4-10.2); CHOLESTEROL RISK RATIO 6.5; CREATININE, serum 1.43 (0.66-1.25); POTASSIUM 3.6 mmol/L (3.4-5.0)
[2019-06-29 03:56] LABS: TROPONIN-I 0.021 ng/mL (0.000-0.035)
[2019-06-29 04:41] VITALS: BP 112/67; PULSE 99; TEMP 97.8
--- NOTE | 2019-06-29 04:43 | NUR ---
PATIENT CAME TO THE UNIT FROM THE ED. HE HAS HAD AN UNEVENTFUL NIGHT. AFTER ONE PAIN PILL AND HIS EVENING MEDICATIONS HE HAS BEEN ABLE TO SLEEP THROUGH THE NIGHT NOT REQUIRING ANYTHING FROM STAFF. WILL REPORT OFF TO DAY SHIFT UPON THEIR ARRIVAL
--- NOTE | 2019-06-29 05:33 | NUR ---
PATIENT WAS EDUCATED ON NOT TAKING SUDAFED ANYMORE BECUASE OF HIS CARDIAC HISTORY BECUASE IT CAN CAUSE A HYPERTENSION EMERGENCY PER Leo ALLEN. PATIENT WAS IN UNDERSTANDANCE OF THIS
[2019-06-29 09:03] VITALS: BP 144/97; PULSE 111; TEMP 98.4
--- NOTE | 2019-06-29 11:36 | NUR ---
Patient is alert and oriented. LOIS Albert increased aspirin from 81mg to 325mg because of a cath procedure he is getting. Procedure will be rescheduled because he needd to be screened for COVID 19 before the procedure can be done.
[2019-06-29 13:00] VITALS: BP 143/103; PULSE 110
[2019-06-29 15:33] VITALS: BP 143/103; PULSE 109
--- NOTE | 2019-06-29 15:40 | NUR ---
SW contacted the patient's room phone to discuss discharge plan. The patient lives in [place] with his older brother, Gerald (ph#[phone]). He reports independence with ADLs and has a cane, walker, and wheelchair available, if needed. The patient's primary care provider is Shelley Alaniz APRN in [place] and he receives his medications at [facility]. He reports no difficulties obtaining his meds. The patient was not interested in getting set up with a closer PCP at this time. The patient does not have advanced directives in EMR, but he states that he does have them completed and at home. The patient states that his brother, Gerald, is his DPOA-HC and next of skin. He states that he is not and does not have any children. The patient plans to return back home with his brother upon discharge. No other additional needs at this time, but SW to continue to follow as needed.
--- NOTE | 2019-06-29 20:17 | NUR ---
Patient is alert an oriented. he was prep for heart cath but was later rescheduled because he has not been cleared for covid 19. patient was transferred to ICU.
[2019-06-29 20:31] VITALS: BP 122/93; PULSE 107; TEMP 97.3
--- NOTE | 2019-06-29 20:34 | NUR ---
Sitting at bedside. Assessment complete. Lungs clear. Heart sounds normal. Bowels active x4. Pulses strong throughout. Right lower extremity edema +2, left lower +1. Rating ABD and knee pain 6/10. Given flexeril at this time. INT right AC without complications. Denies other needs. Call light in reach.
--- NOTE | 2019-06-29 22:45 | NUR ---
Resting in bed. Denies needs. Call light in reach.
[2019-06-30] VITALS (8 sets, daily range): BP systolic 100–127; BP diastolic 70–91; PULSE 91–105; TEMP 96.3–97.9
--- NOTE | 2019-06-30 00:51 | NUR ---
Patient 88% on room air while asleep. Placed on 2 liters nasal cannula.
[2019-06-30 05:37] LABS: BASO # 0.1 (0.0-0.2); BASO % 0.6 % (0.0-2.0); EOS # 0.5 (0.0-0.7); EOS % 4.1 % (0-4.0); GRAN % 73.2 % (42.2-75.2); HEMATOCRIT 46.4 % (42.0-52.0); HEMOGLOBIN 14.5 g/dl (13.5-18.0); LYMPH # 1.4 (1.2-3.4); LYMPH % 12.9 % (20.0-51.0); MEAN CELL VOLUME 80 fl (80.0-100.0); MEAN CORPUSCULAR HEMOGLOBIN 25 pg (27.0-31.0); MEAN CORPUSCULAR HGB CONC 31 g/dl (33.0-37.0); MEAN PLATELET VOLUME 10.5 fl (7.4-10.4); MONO % 8.9 % (1.7-9.3); PLATELET COUNT 188 K/mm3 (130-400); RED BLOOD COUNT 5.77 M/mm3 (4.20-5.60); REDCELL DISTRIBUTION WIDTH-CV 14.8 % (11.5-14.5)
[2019-06-30 05:47] LABS: CALCIUM 8.6 mg/dL (8.4-10.2); CREATININE, serum 1.62 (0.66-1.25); POTASSIUM 3.4 mmol/L (3.4-5.0)
--- NOTE | 2019-06-30 07:41 | NUR ---
Patient required x1 dose of oxycodone and x1 dose of flexeril for pain control. Otherwise unevnetful night. Sitting at bedside eating breakfast. Report given to LOIS Gonzales
--- NOTE | 2019-06-30 09:05 | NUR ---
Pt assessment complete. Pt is sleeping in bed upon entry, he arouses to voice. He is oriented x4. His breathing is even and unlabored on 2L O2 via NC. Pt denies SOB at this time, reports worsening with exertion. Pt has intermittent cough. Reports pain to knees at this time and states he is having leg cramps. Also reports his stomach is upset, no vomitting. Pt provided with water and crackers per his request. No needs at this time. Call light within reach.
--- NOTE | 2019-06-30 17:09 | NUR ---
Pt awoken from a nap stating he was feeling SOB, states this is the same thing that brought him into the hospital. O2 sat 93% on 1L O2 via NC. Requesting a "medication for anxiety". Atarax to be given. Will continue to monitor.
--- NOTE | 2019-06-30 19:30 | NUR ---
Pt resting in bed. No distress noted. VSS. Respirations even and unlabored. Lungs clear to auscultation. Spo2 95% on RA. Pt reports chest tightness but no pain or shortness of breath. Pt c/o pain in bilateral lower extremities. RLE has 2+ pitting edema. LLE no edema noted. Abdomen soft, nontender. BS+. Pt voiding clear, bernie urine without difficulty. Pt denies needs at this time.
--- NOTE | 2019-06-30 21:30 | NUR ---
COVID-19 test negative. Laura PACHECO notified by x ray physician. Pt removed from isolation precautions.
--- NOTE | 2019-06-30 22:54 | NUR ---
Pt aware of transfer to medical floor. Report called to Meredith ABREU on medical.
--- NOTE | 2019-06-30 23:15 | NUR ---
Pt transferred to room 314 via wheelchair. No distress noted. Pt on RA. VSS. Meredith RN at bedside. Call light in reach.
--- NOTE | 2019-06-30 23:20 | NUR ---
Received patient via wheelchair from ICU. He is alert, oriented and independent. He has INT on right AC. With pain on his bilateral knees with score of 5/10. Provided him with sandwich box and water. Instructed patient that he is on fluid restriction of 1500ml per day. Provided urinal for accurate intake and output. On room air and tele. Call light within reach.
[2019-07-01] VITALS (472 sets, daily range): BP systolic 96–142; BP diastolic 52–99; PULSE 84–110; TEMP 97.5–98.5; O2SAT 94–100
[2019-07-01 05:50] LABS: BASO # 0.1 (0.0-0.2); BASO % 0.7 % (0.0-2.0); EOS # 0.6 (0.0-0.7); EOS % 6.1 % (0-4.0); GRAN # 6.3 (1.4-6.5); GRAN % 68.5 % (42.2-75.2); HEMATOCRIT 47.7 % (42.0-52.0); LYMPH # 1.4 (1.2-3.4); LYMPH % 14.8 % (20.0-51.0); MEAN CELL VOLUME 82 fl (80.0-100.0); MEAN CORPUSCULAR HEMOGLOBIN 26 pg (27.0-31.0); MEAN CORPUSCULAR HGB CONC 31 g/dl (33.0-37.0); MEAN PLATELET VOLUME 10.5 fl (7.4-10.4); MONO # 0.9 (0.1-0.6); MONO % 9.4 % (1.7-9.3); PLATELET COUNT 226 K/mm3 (130-400); RED BLOOD COUNT 5.85 M/mm3 (4.20-5.60); REDCELL DISTRIBUTION WIDTH-CV 14.9 % (11.5-14.5)
[2019-07-01 06:05] LABS: CALCIUM 8.5 mg/dL (8.4-10.2); CREATININE, serum 1.57 (0.66-1.25); MAGNESIUM 1.9 mg/dL (1.6-2.3); POTASSIUM 3.7 mmol/L (3.4-5.0)
--- NOTE | 2019-07-01 06:15 | NUR ---
Patient had an uneventful night. He states he was able to sleep. No shortness of breath noted. With pain on his bilateral knees, pain score of 5/10. Oxycodone PRN given. Will endorse to day shift nurse.
--- NOTE | 2019-07-01 10:50 | NUR ---
Pt assessment completed and charted. Pt is A&O, independent in room. Pt on room air at this time, breathing is even and unlabored. Pt has RAC INT IV that flushes w/o complications. Pt to have heart cath procedure this afternoon, NPO at this time. Pt denies any pain at this time, requesting to take a nap before procedure. Pt provided w/ gown to change into before procedure. Consent signed and on chart. All questions answered regarding procedure, no further needs.
--- NOTE | 2019-07-01 12:13 | NUR ---
Pt worked with therapy and then after called out requesting pain medication. Pt states he has chronic knee pain and it is now "shooting up there". Administered PRN pain medication per MAR. Pt going down for heart cath at this time.
--- NOTE | 2019-07-01 12:45 | NUR ---
SEE MERGE DOCUMENTATION FOR MEDICATION ADMINISTRATION TIMES AND INTRA/POST PROCEDURE SEDATION ASSESSMENTS. PLAN FOR RIGHT RADIAL APPROACH FOR LHC; BARBEAU TEST POSITIVE. PLAN FOR RIGHT GROIN ACCESS FOR RHC.
--- NOTE | 2019-07-01 14:18 | NUR ---
Latasha Milton from tutorial laboratory supervisor called, pt transferred to [facility]. LATASHA Ortiz receiving pt, received report from LATASHA Milton. Belongings taken to room. RN to call for any further questions.
--- NOTE | 2019-07-01 14:24 | NUR ---
PT TRANSFERRED FROM [employer] VIA BED TO EU 14. PT AWAKE, ALERT, AND ORIENTED.
--- NOTE | 2019-07-01 14:25 | NUR ---
Patient transferred to [facility] at that time. VS monitors attached to pt, all VS's stable. Bedside handoff with Diana CHEF GERMAN. Right radial site with TR Band in place; 10cc air in band. No bleeding noted; pt denies pain or sensation changes to hand. Right groin venous puncture site observed; dressing noted dry and intact. No bleeding or bruising noted. Site soft to palpation. No s/sx of distress noted. Education reinforced with pt regarding wrist and groin precautions. Pt verbalizes understanding of these instructions.
--- NOTE | 2019-07-01 14:29 | NUR ---
PT HAS RIGHT RADIAL TR BAND. PT ALSO HAS RIGHT VENOUS PUNCTURE SITE. SITE HAS GAUZE SITE COVERED WITH TEGADERM.
--- NOTE | 2019-07-01 14:46 | NUR ---
RIGHT GROIN SITE DRESSING CLEAN, DRY, AND INTACT.
--- NOTE | 2019-07-01 14:56 | NUR ---
RIGHT GROIN SITE CLEAN, DRY, AND INTACT.
--- NOTE | 2019-07-01 15:48 | NUR ---
RIGHT GROIN SITE CLEAN, DRY, AND INTACT.
--- NOTE | 2019-07-01 16:15 | NUR ---
ATTEMPTED TO LOOSEN TR BAND BUT SITE BEGAN BLEEDING IMMEDIATELY. AIR REINSTILLED INTO TR BAND.
--- NOTE | 2019-07-01 16:52 | NUR ---
RIGHT GROIN SITE CLEAN, DRY, AND INTACT.
--- NOTE | 2019-07-01 17:30 | NUR ---
RIGHT GROIN SITE REMAINS DRY AND INTACT.
--- NOTE | 2019-07-01 18:13 | NUR ---
RIGHT GROIN SITE REMAINS CLEAN, DRY, AND INTACT. 10CC OF AIR REMOVED FROM TR BAND. NO BLEEDING NOTED. TR BAND REMOVED, GAUZE AND COBAN DRESSING APPLIED. PT TOLERATED WELL.
--- NOTE | 2019-07-01 21:00 | NUR ---
Cath checks within normal limits: VS stable. Patient alert and oriented; no concerns at this time.
[2019-07-02] VITALS (487 sets, daily range): BP systolic 95–117; BP diastolic 51–87; PULSE 89–105; TEMP 97.5–98.7; O2SAT 91–100
[2019-07-02 05:30] LABS: BASO # 0.1 (0.0-0.2); BASO % 0.6 % (0.0-2.0); EOS # 0.4 (0.0-0.7); EOS % 4.2 % (0-4.0); GRAN # 6.6 (1.4-6.5); GRAN % 68.1 % (42.2-75.2); HEMATOCRIT 48.2 % (42.0-52.0); HEMOGLOBIN 15.4 g/dl (13.5-18.0); LYMPH # 1.5 (1.2-3.4); LYMPH % 15.3 % (20.0-51.0); MEAN CELL VOLUME 81 fl (80.0-100.0); MEAN CORPUSCULAR HEMOGLOBIN 26 pg (27.0-31.0); MEAN CORPUSCULAR HGB CONC 32 g/dl (33.0-37.0); MEAN PLATELET VOLUME 10.1 fl (7.4-10.4); MONO # 1.1 (0.1-0.6); MONO % 11.5 % (1.7-9.3); PLATELET COUNT 236 K/mm3 (130-400); RED BLOOD COUNT 5.99 M/mm3 (4.20-5.60); REDCELL DISTRIBUTION WIDTH-CV 15.4 % (11.5-14.5)
--- NOTE | 2019-07-02 05:30 | NUR ---
At bedside; cath checks within normal limits. Requesting PRN pain medication for chronic leg pain. Denies any other concerns. WIll continue to monitor.
[2019-07-02 05:40] LABS: CALCIUM 8.7 mg/dL (8.4-10.2); CREATININE, serum 1.43 (0.66-1.25); POTASSIUM 3.7 mmol/L (3.4-5.0)
--- NOTE | 2019-07-02 07:00 | NUR ---
Bedside report received. Patient resting in bed with no complaints.
--- NOTE | 2019-07-02 07:30 | NUR ---
Received report from LOIS Quezada. Patient is resting comfortably in bed with call light at bedside.
--- NOTE | 2019-07-02 11:00 | NUR ---
Dr. Herrera sees patient at this time. Transfer orders will be obtained. Dr. Herrera and Dr. David discuss plan of care with patient
--- NOTE | 2019-07-02 11:29 | NUR ---
MANJIT attended clinical rounds. The patient had a stent yesterday. The patient is to tentatively be able to discharge tomorrow, 07/02. MANJIT followed up with the patient to review discharge plan. The patient reports that he still plans to return back home with his brother. He states that his brother will provide transport. MANJIT read the IM form outloud to the patient. The patient verbalized understanding and gave MANJIT approval to sign on his behalf. The patient was provided with a copy. The patient also informed MANJIT that he has a [employer] secondary plan. He provided MANJIT with a copy of the card. MANJIT notified Financial Counselor, Marian. No additional needs at this time.
--- NOTE | 2019-07-02 18:11 | NUR ---
Patient is taken up to room 317. Mena RN aware of arrival
--- NOTE | 2019-07-02 18:40 | NUR ---
PT REPORT RECEIVED FROM ALISHA RN AT BEDSIDE. PT IS SITTING IN RECLINER WATCHING TV WITH NO S/S OF DISTRESS NOTED. CALL LIGHT WITHIN REACH. WILL CONTINUE TO MONITOR.
--- NOTE | 2019-07-02 19:05 | NUR ---
Pt up to room 317 by GINNA from [facility]. Pt is A&O, independent in room. Pt has RAC INT IV. Pt had heart cath yesterday 07/01/19, rt groin site CDI, no hematoma noted, pt denies pain. Rt radial site w/ bandaid, CDI, no issues noted. Pt on room air, breathing is even and unlabored, denies SOB at this time, states he had some earlier this afternoon but felt better when he sat up. Pt denies any pain, chest pain, N/V/D. No further concerns noted. Report given to LOIS Melendez.
--- NOTE | 2019-07-03 01:21 | NUR ---
Pt has had an uneventual evening resting in his recliner and the bed watching tv for most of the shift until he was ready for bed. Pt has had persistent c/o pain and has been requesting his PRN 5mg Roxicodone Q4H with reports of [pain elevating up to a 7/10 prior to pain medication being administered and follow up pain levels noted to be 4/10. Call light within reach. Will continue to monitor.
[2019-07-03 03:25] VITALS: BP 140/83; PULSE 102; TEMP 97.6
--- NOTE | 2019-07-03 03:33 | NUR ---
Pt has been resting peacefully, during the latter portion of the shift, in bed with eyes closed and no s/s of pain or distress noted. Pt has had increased restfullness since taking his last PRN Roxicodone about 3 hours ago and appears to have fallen asleep. Pt stated prior to the last PRN Roxicodone administration that he felt that dose would alleviate his pain and discomfort enough so that he could fall asleep. Pt reports that he takes oxycodone at home for pain on a regular basis. Call light is at Pt side. Will continue to monitor.
--- NOTE | 2019-07-03 06:03 | NUR ---
Pt was easily aroused for AM meds which he took without difficulty. Pt remains A&Ox4 with call light at his side and beverages within reach on the bedside table. No s/s of distress noted. Will continue to monitor.
[2019-07-03 08:31] VITALS: BP 117/74; PULSE 97; TEMP 97.6
[2019-07-03] MEDS ORDERED: GLUCOPHAGE1000 MG PO (09:57)
[2019-07-03] MEDS ORDERED: NORVASC 5MG5 MG/TAB PO (09:58)
[2019-07-03] MEDS ORDERED: BRILINTA90 MG PO (09:58)
[2019-07-03] MEDS ORDERED: COREG 25MG25 MG/TAB PO (09:58)
[2019-07-03] MEDS ORDERED: ALTACE 2.5MG T2.5 MG PO (09:58)
[2019-07-03] MEDS ORDERED: NITROSTAT0.4 MG/TAB SL (10:00)
[2019-07-03] MEDS ORDERED: DEMADEX 20MG20 M1 PO (10:01)
--- NOTE | 2019-07-03 11:25 | NUR ---
DISCHARGE INFORMATION PROVIDED TO PT. NO QUESTIONS ASKED, VOICED UNDERSTANDING. IV AND TELE REMOVED WITHOUT ISSUES. THIS NURSE WALKED PT TO ER DOOR, PT AMBULATED (PER HIS PREFERANCE) WITHOUT ISSUES TO ER. WAS SLIGHTLY DYSPNIC WITH THE WALK BUT TOLERATED WELL.
== END 2019-07-03 11:30 | disposition home or self-care (01) | DRG 246 ==
LOC: COL.ER 17:16 → EU 20:00 → MEDICAL 20:00 → EU 06-29 12:03 → MEDICAL 06-30 23:12 → EU 07-01 14:11 → MEDICAL 07-02 18:02
PROVIDERS: Nurse Practitioner Family; Nurse Practitioner Primary Care; Physician Assistant; Student in an Organized Health Care Education/Training Program; ADMIT Hospitalist
PROC: 4A023N6 Measurement of Cardiac Sampling and Pressure, Right Heart, Percutaneous Approach (ICD-10-PCS; principal; 2019-07-01)
PROC: 027034Z Dilation of Coronary Artery, One Artery with Drug-eluting Intraluminal Device, Percutaneous Approach (ICD-10-PCS; 2019-07-01)
PROC: B211YZZ Fluoroscopy of Multiple Coronary Arteries using Other Contrast (ICD-10-PCS; 2019-07-01)
DX: I13.0 Hypertensive heart and chronic kidney disease with heart failure and stage 1 through stage 4 chronic kidney disease, or unspecified chronic kidney disease (principal); I50.23 Acute on chronic systolic (congestive) heart failure; R65.10 Systemic inflammatory response syndrome (SIRS) of non-infectious origin without acute organ dysfunction; E87.2 Acidosis; N18.9 Chronic kidney disease, unspecified; I42.9 Cardiomyopathy, unspecified; I27.20 Pulmonary hypertension, unspecified; E11.21 Type 2 diabetes mellitus with diabetic nephropathy; G89.29 Other chronic pain; E87.6 Hypokalemia; E83.42 Hypomagnesemia; K21.9 Gastro-esophageal reflux disease without esophagitis; Z79.84 Long term (current) use of oral hypoglycemic drugs; Z79.82 Long term (current) use of aspirin; Z87.891 Personal history of nicotine dependence; Z03.818 Encounter for observation for suspected exposure to other biological agents ruled out
CPT/HCPCS: 99223-AI; 99232-AI; 99233-AI; 99239; C1769; C1874; C1887; C1894; C9600; J0583; J1644; J1815; J1940; J2250; J3010; J3475; Q9967

== ENCOUNTER → 2019-09-30 | Outpatient (CLI) | payer MEDICARE ==
[~2019-09-30] MED LIST changes: +ALTACE 2.5MG T2.5 MG PO; +ASPIRIN 81M81 MG/TA2 PO; +ATARAX 25MG25 MG/TAB PO; +BRILINTA90 MG PO; +CEPHALEXIN500 M1 PO; +COREG 25MG25 MG/TAB PO; +DEMADEX 20MG20 M1 PO; +NITROSTAT0.4 MG/TAB SL; +SENOKOT8.6 MG PO; +TOPROL XL100 MG PO; +ZOFRAN 4MG T4 MG/TAB PO
== END ==
LOC: COL.VAS 14:24
DX: I50.42 Chronic combined systolic (congestive) and diastolic (congestive) heart failure (principal); I51.7 Cardiomegaly; J90 Pleural effusion, not elsewhere classified; I34.0 Nonrheumatic mitral (valve) insufficiency

== ENCOUNTER → 2020-07-26 | Outpatient (CLI) | payer MEDICARE ==
[2020-07-26 12:26] LABS: BASO # 0.1 (0.0-0.2); BASO % 0.6 % (0.0-2.0); EOS # 0.2 (0.0-0.7); EOS % 2.3 % (0-4.0); GRAN # 7.7 (1.4-6.5); GRAN % 78.8 % (42.2-75.2); HEMATOCRIT 48.5 % (42.0-52.0); LYMPH % 10.2 % (20.0-51.0); MEAN CELL VOLUME 87 fl (80.0-100.0); MEAN CORPUSCULAR HEMOGLOBIN 29 pg (27.0-31.0); MEAN CORPUSCULAR HGB CONC 33 g/dl (33.0-37.0); MEAN PLATELET VOLUME 10.3 fl (7.4-10.4); MONO # 0.8 (0.1-0.6); MONO % 7.7 % (1.7-9.3); PLATELET COUNT 247 K/mm3 (130-400); RED BLOOD COUNT 5.61 M/mm3 (4.20-5.60); REDCELL DISTRIBUTION WIDTH-CV 13.8 % (11.5-14.5)
[2020-07-26 12:45] LABS: ALANINE AMINOTRANSFERASE 24 U/L (4-49); ALBUMIN 4.6 gm/dL (3.5-5.0); ALKALINE PHOSPHATASE 61 U/L (50-136); ANION GAP 12 mmol/L (7-16); AST,SGOT 25 U/L (15-37); BILIRUBIN,TOTAL 0.5 mg/dL (0.0-1.0); BLOOD UREA NITROGEN 27 mg/dL (9-20); CALCIUM 9.5 mg/dL (8.4-10.2); CARBON DIOXIDE 23 mmol/L (22-30); CHLORIDE 105 mmol/L (98-107); CREATININE, serum 1.09 (0.66-1.25); GLUCOSE 152 mg/dL (74-106); POTASSIUM 4.5 mmol/L (3.4-5.0); SODIUM 139 mmol/L (137-145); TOTAL PROTEIN 8.8 gm/dL (6.4-8.2)
[2020-07-26 12:56] LABS: ERYTHROCYTE SEDIMENTATION RATE 2 mm/hr (0-30)
[2020-07-26 13:05] LABS: C-REACTIVE PROTEIN < 0.5 mg/dL (0.0-0.9)
== END ==
LOC: COL.LAB 11:12 → COL.RAD 11:41
PROVIDERS: Nurse Practitioner
DX: Z96.651 Presence of right artificial knee joint (principal); B99.9 Unspecified infectious disease; Z96.7 Presence of other bone and tendon implants

== ENCOUNTER → 2020-08-04 | Outpatient (CLI) | payer MEDICARE ==
[2020-08-04 13:26] LABS: CALCIUM 8.9 mg/dL (8.4-10.2); CREATININE, serum 0.99 (0.66-1.25); POTASSIUM 4.4 mmol/L (3.4-5.0)
== END ==
LOC: COL.LAB 12:17
DX: E78.5 Hyperlipidemia, unspecified (principal); I13.0 Hypertensive heart and chronic kidney disease with heart failure and stage 1 through stage 4 chronic kidney disease, or unspecified chronic kidney disease; N18.9 Chronic kidney disease, unspecified; I50.9 Heart failure, unspecified; E87.5 Hyperkalemia; E23.0 Hypopituitarism

== ENCOUNTER → 2020-08-11 | Outpatient (CLI) | payer MEDICARE ==
[2020-08-11 11:19] LABS: CALCIUM 8.7 mg/dL (8.4-10.2); CREATININE, serum 1.1 (0.66-1.25); POTASSIUM 4.6 mmol/L (3.4-5.0)
== END ==
LOC: COL.LAB 10:41
DX: I50.9 Heart failure, unspecified (principal); E87.5 Hyperkalemia

== ENCOUNTER → 2020-09-01 | Outpatient (CLI) | payer MEDICARE ==
[2020-09-01 09:52] LABS: CREATININE, serum 1.06 (0.66-1.25)
== END ==
LOC: COL.RAD 07:30
PROVIDERS: Internal Medicine Nephrology
DX: N28.1 Cyst of kidney, acquired (principal); N28.9 Disorder of kidney and ureter, unspecified; N18.2 Chronic kidney disease, stage 2 (mild)
CPT/HCPCS: A9585

== ENCOUNTER → 2020-09-01 | Outpatient (CLI) | payer MEDICARE | LOC: COL.LAB 09:27 | DX: N18.2 Chronic kidney disease, stage 2 (mild) (principal); E87.5 Hyperkalemia ==

== ENCOUNTER → 2020-10-02 | Outpatient (CLI) | payer MEDICARE ==
[2020-10-02 16:16] LABS: CALCIUM 10.3 mg/dL (8.4-10.2); CREATININE, serum 1.27 (0.66-1.25); POTASSIUM 4.9 mmol/L (3.4-5.0)
== END ==
LOC: COL.LAB 12:00
DX: I50.9 Heart failure, unspecified (principal); E87.5 Hyperkalemia

== ENCOUNTER → 2020-10-11 | Outpatient (CLI) | payer MEDICARE ==
[2020-10-11 15:44] LABS: CALCIUM 9.2 mg/dL (8.4-10.2); CREATININE, serum 1.29 (0.66-1.25); POTASSIUM 4.7 mmol/L (3.4-5.0)
== END ==
LOC: COL.LAB 14:56
DX: I50.42 Chronic combined systolic (congestive) and diastolic (congestive) heart failure (principal)

== ENCOUNTER → 2021-04-30 | Outpatient (CLI) | payer MEDICARE ==
[2021-04-30 14:08] LABS: CREATININE, serum 1.06 mg/dL (0.72-1.25); MAGNESIUM 1.6 mg/dL (1.6-2.6); POTASSIUM 4.3 mmol/L (3.5-4.5)
== END ==
LOC: COL.LAB 13:19
DX: I11.0 Hypertensive heart disease with heart failure (principal); I42.8 Other cardiomyopathies; I50.20 Unspecified systolic (congestive) heart failure

== ENCOUNTER → 2021-06-29 | Outpatient (CLI) | payer MEDICARE ==
[2021-06-29 15:35] LABS: CALCIUM 8.9 mg/dL (8.4-10.2); CREATININE, serum 1.45 mg/dL (0.72-1.25); POTASSIUM 4.6 mmol/L (3.5-4.5)
== END ==
LOC: COL.LAB 15:03
DX: I50.42 Chronic combined systolic (congestive) and diastolic (congestive) heart failure (principal)

== ENCOUNTER → 2021-08-27 | Outpatient (CLI) | payer MEDICARE ==
[2021-08-27 16:43] LABS: CALCIUM 9.5 mg/dL (8.4-10.2); CREATININE, serum 1.26 mg/dL (0.72-1.25)
== END ==
LOC: COL.LAB 15:46
DX: I50.42 Chronic combined systolic (congestive) and diastolic (congestive) heart failure (principal)

== ENCOUNTER → 2021-11-13 | Outpatient (CLI) | payer MEDICARE ==
[~2021-11-13] MED LIST changes: +COREG12.5 MG PO; +COZAAR 25MG25 MG/TAB PO; +CRESTOR5 MG PO; +LASIX 20MG TABL20 MG PO; +PEPCID40 MG PO
[2021-11-13 12:27] LABS: CALCIUM 9.7 mg/dL (8.4-10.2); CREATININE, serum 1.25 mg/dL (0.72-1.25); POTASSIUM 4.7 mmol/L (3.5-4.5)
== END ==
LOC: COL.LAB 11:43
DX: I42.8 Other cardiomyopathies (principal); I50.42 Chronic combined systolic (congestive) and diastolic (congestive) heart failure

== ENCOUNTER 2021-11-16 09:59 | Emergency (ER) | payer MEDICARE ==
[~2021-11-16] VITALS: Ht 180.3 cm; Wt 98.6 kg
[~2021-11-16 09:59] MED LIST changes: -COREG12.5 MG PO; -COZAAR 25MG25 MG/TAB PO; -CRESTOR5 MG PO; -LASIX 20MG TABL20 MG PO; -PEPCID40 MG PO
[2021-11-16 10:14] VITALS: TEMP 97.7
[2021-11-16 10:27] LABS: COLLECTION METHOD CLEAN CATCH
[2021-11-16 10:39] LABS: PH 5.5 (5.0-8.5); URINE APPEARANCE Clear (CLEAR/HAZY); URINE COLOR Yellow (YELLOW)
[2021-11-16 10:40] LABS: SQUAMOUS EPITHELIAL None Seen /hpf (0-10); URINE BACTERIA None Seen /hpf (NONE SEEN); URINE BLOOD Negative (NEGATIVE); URINE GLUCOSE 3+ (NEGATIVE); URINE KETONE 1+ (NEGATIVE); URINE NITRATE Negative (NEGATIVE); URINE PROTEIN(semi-quant) TRACE (NEGATIVE); URINE RBC 0-2 /hpf (0-2); URINE UROBILINOGEN 0.2 E.U/dL (0.2-1.0)
[2021-11-16 11:13] LABS: BASO # 0.1 K/mm3 (0.0-0.2); BASO % 0.5 % (0.0-2.0); EOS # 0.1 K/mm3 (0.0-0.7); EOS % 0.5 % (0.0-4.0); GRAN # 13.2 K/mm3 (1.4-6.5); GRAN % 87.8 % (42.2-75.2); HEMATOCRIT 50.7 % (42.0-52.0); HEMOGLOBIN 17.4 g/dl (13.5-18.0); LYMPH # 1.1 K/mm3 (1.2-3.4); LYMPH % 7.4 % (20.0-51.0); MEAN CELL VOLUME 83 fl (80.0-100.0); MEAN CORPUSCULAR HEMOGLOBIN 28 pg (27-31); MEAN CORPUSCULAR HGB CONC 34 g/dl (33.0-37.0); MEAN PLATELET VOLUME 11.4 fl (7.4-10.4); MONO # 0.5 K/mm3 (0.1-0.6); MONO % 3.4 % (1.7-9.3); PLATELET COUNT 225 K/mm3 (130-400); RED BLOOD COUNT 6.13 M/mm3 (4.20-5.60); REDCELL DISTRIBUTION WIDTH-CV 13.1 % (11.5-14.5)
[2021-11-16 11:35] LABS: ALBUMIN 4.5 gm/dL (3.4-4.8); BILIRUBIN,TOTAL 0.8 mg/dL (0.2-1.2); CALCIUM 9.8 mg/dL (8.4-10.2); CREATININE, serum 1.21 mg/dL (0.72-1.25); POTASSIUM 4.1 mmol/L (3.5-4.5); TOTAL PROTEIN 8.1 gm/dL (6.2-8.1)
[2021-11-16 11:40] LABS: TROPONIN-I 0.018 ng/mL (0.00-0.033)
[2021-11-16 13:00] VITALS: BP 174/95
[2021-11-16] MEDS ORDERED: COZAAR 25MG25 MG/TAB PO (14:16)
[2021-11-16] MEDS ORDERED: CRESTOR5 MG PO (14:18)
[2021-11-16] MEDS ORDERED: LASIX 20MG TABL20 MG PO (14:23)
[2021-11-16] MEDS ORDERED: PEPCID40 MG PO (14:24)
[2021-11-16] MEDS ORDERED: COREG12.5 MG PO (14:25)
[2021-11-16 15:19] VITALS: PULSE 89
== END 2021-11-16 15:19 | disposition home or self-care (01) ==
LOC: COL.ER 09:59
PROVIDERS: Emergency Medicine; Physician Assistant
DX: E11.9 Type 2 diabetes mellitus without complications (principal); F11.90 Opioid use, unspecified, uncomplicated; D72.829 Elevated white blood cell count, unspecified; R11.2 Nausea with vomiting, unspecified; R10.32 Left lower quadrant pain; M25.562 Pain in left knee; Z20.822 Contact with and (suspected) exposure to COVID-19; W18.30XA Fall on same level, unspecified, initial encounter
CPT/HCPCS: J2270; J2405; J2550; J2765; J7030; Q9967

== ENCOUNTER → 2022-04-17 | Outpatient (CLI) | payer MEDICARE ==
[~2022-04-17] MED LIST changes: +COREG12.5 MG PO; +COZAAR 25MG25 MG/TAB PO; +CRESTOR5 MG PO; +LASIX 20MG TABL20 MG PO; +PEPCID40 MG PO
[2022-04-17 14:15] LABS: CALCIUM 9.1 mg/dL (8.4-10.2); CREATININE, serum 1.3 mg/dL (0.72-1.25); POTASSIUM 5.1 mmol/L (3.5-4.5)
== END ==
LOC: COL.LAB 13:33
DX: I50.42 Chronic combined systolic (congestive) and diastolic (congestive) heart failure (principal); I42.8 Other cardiomyopathies; I25.119 Atherosclerotic heart disease of native coronary artery with unspecified angina pectoris; E66.01 Morbid (severe) obesity due to excess calories

== ENCOUNTER → 2022-05-15 | Outpatient (CLI) | payer MEDICARE ==
[2022-05-18 14:56] LABS: URINE HOURS (IEP) 24 h (()); URINE TOTAL VOLUME (IEP) 2300 mL (())
[2022-05-20 08:54] LABS: A/G RATIO (IEP) 0.84 (()); ALBUMIN (IEP) 3.5 g/dL (3.4-4.7); ALPHA 1 GLOBULINS (IEP) 0.2 g/dL (0.1-0.3); ALPHA 2 GLOBULINS (IEP) 1.1 g/dL (0.6-1.0); GAMMA GLOBULINS (IEP) 1.8 g/dL (0.6-1.6); TOTAL PROTEIN (IEP) 7.7 g/dL (())
[2022-05-21 13:52] LABS: URINE A/G RATIO 24HR (IEP) 0.48 (()); URINE ALBUMIN 24HR (IEP) 58.9 mg/24 h (()); URINE ALPHA 1 GLOB 24HR (IEP) 14.7 mg/24 h (()); URINE BETA 24HR (IEP) 36.8 mg/24 h (()); URINE GAMMA 24HR (IEP) 36.8 mg/24 h (())
== END ==
LOC: COL.LAB 13:10
PROVIDERS: Internal Medicine Gastroenterology
DX: D47.2 Monoclonal gammopathy (principal); R77.8 Other specified abnormalities of plasma proteins; R63.4 Abnormal weight loss

== ENCOUNTER → 2023-12-02 | Outpatient (CLI) | payer MEDICARE ==
[2023-12-02 12:42] LABS: ALBUMIN 3.9 g/dL (3.4-4.8); CREATININE, serum 1.6 mg/dL (0.72-1.25); PHOSPHOROUS 3.6 mg/dL (2.3-4.7); POTASSIUM 5.7 mEq/L (3.5-4.5)
== END ==
LOC: COL.LAB 11:37
PROVIDERS: Internal Medicine Nephrology
DX: N17.9 Acute kidney failure, unspecified (principal)